=== PATIENT | male | born 1985 | race Caucasian/White ===

== ENCOUNTER 2016-10-08 09:30 | Inpatient (IN) | payer OTHER ==
--- NOTE | ~2016-10-08 | CT71 ---
[facility] A Service of [facility] RADIOLOGY TEXT RESULTS PATIENT: KARLIE WEINBERG LOCATION: [facility] 564-01 : 84 UNIT #: [id number] AGE: [address]: Kalpana Torres MD SEX: M ORDER DR: [id number] [facility] [address] [place], [place] [address] [id number] E MR#: [id number] Acc #: [id number] NAME: KARLIE WEINBERG SR : 1985 SEX: M STUDY DATE/TIME: 10/08/2016 11:02 UNIT: CIRILO ROOM: STUDY DESCRIPTION: CT Head Wo Contrast Attending Physician: Arden Patiño M.D. Ordering Physician: Arden Patiño M.D. Primary Care Physician: Primary Care Physician No MEDICAL IMAGING REPORT This report is preliminary unless electronic signature is present EXAM CT brain without contrast media HISTORY On ventilator, combative seizure, worse. TECHNIQUE Axial imaging of the brain was performed without contrast media. Bone and soft tissue windows are reviewed. The CT exam was performed with one or more of the following radiation dose reduction techniques: automatic exposure control, adjustment of mA and/or kV according to patient size, and iterative reconstruction. FINDINGS Ventricular size and configuration is normal. No intra or extraaxial mass lesions, fluid collections or mass effect are seen. No focal areas of low attenuation or evidence of hemorrhage. Patient does have a left frontal scalp hematoma. CONCLUSION [address] of the brain. 2.Left frontal scalp hematoma. Dictated by... Thompson Patel M.D. THIS IS AN ELECTRONICALLY VERIFIED REPORT Thompson Patel M.D. at 10/10/2016 7:14 AM JOSH/ari [facility] A Service [facility] RADIOLOGY TEXT RESULTS PATIENT: KARLIE WEINBERG LOCATION: [facility] 564-01 : 84 UNIT #: [id number] AGE: [address]: Kalpana Torres MD SEX: M ORDER DR: TD: 10/08/2016 13:44 JOB #: [id number] MEDICAL IMAGING REPORT Page 1 of 1 COPY
--- NOTE | ~2016-10-08 | CT2 ---
[facility] A Service of [facility] & [facility] RADIOLOGY TEXT RESULTS PATIENT: KARLIE WEINBERG SR LOCATION: [facility] [place] [facility] : 84 UNIT #: [id number] AGE: [address]: Kalpana Torres MD SEX: M ORDER DR: [id number] [facility] [address] [place], [place] [address] [id number] I MR#: [id number] Acc #: [id number] NAME: KARLIE WEINBERG SR : 1985 SEX: M STUDY DATE/TIME: 10/08/2016 14:49 UNIT: [facility] ROOM: [facility] STUDY DESCRIPTION: CT Abd and Pelv W Cont Attending Physician: James Drake M.D. Ordering Physician: Arden Patiño M.D. Primary Care Physician: No Primary Care Physician MEDICAL IMAGING REPORT This report is preliminary unless electronic signature is present EXAM CT abdomen and pelvis, 10/08/16. HISTORY Seizure today. Unable to give history, unable to cath patient on vent. Abdomen distension and fluid in lungs. TECHNIQUE CT abdomen and pelvis performed with intravenous administration of 100 mL Isovue-370. This CT exam was performed with one or more of the following radiation dose reduction techniques: automatic exposure control, adjustment of mA and/or kV according to patient size, and iterative reconstruction. COMPARISON No prior CTs of abdomen or pelvis for comparison. FINDINGS Please see today's dedicated CT of the chest for discussion of significant findings above the diaphragm. Liver, gallbladder, spleen, pancreas, adrenal glands unremarkable. 3 to 4-mm nonobstructive calculus upper pole right kidney. Bilateral kidneys and ureters otherwise unremarkable. CT PELVIS: No inguinal adenopathy. Mild urinary bladder distension. It measures 9.4 cm x 9.7 cm x 6.8 cm. No focal mural abnormality. Within the right aspect of the proximal corpus spongiosum there is a hypodense/water density structure measuring 2.4 cm in length by approximately 1.1 cm in transverse diameter. It is intimately associated with region of the proximal penile urethra. Its exact etiology is unclear. It does not contain hyperdense material to suggest products of hemorrhage. It may represent some form of chronic cyst or possibly urethral diverticulum. Clinical significance unclear. This could be further evaluated if clinically warranted with retrograde urethrogram or STS. [facility] A Service of [facility] & [facility] RADIOLOGY TEXT RESULTS PATIENT: KARLIE WEINBERG SR LOCATION: [facility] [place] [facility] 564-01 : 84 UNIT #: [id number] AGE: [address]: Kalpana Torres MD SEX: M ORDER DR: voiding cystourethrogram. Correlation with any prior studies recommended. Correlate with any prior trauma or intervention to the penile urethra. No pelvic fluid collection. No pelvic or retroperitoneal adenopathy. The distal esophagus unremarkable. Moderate gaseous distension of stomach. No focal gastric abnormality is seen. Small bowel, appendix, colon notable for presence of uncomplicated colonic diverticula. The aorta is normal in caliber. The visualized branch vessels appear patent. Bony structures show bilateral L5 pars interarticularis defects. No resulting alignment abnormality. Mild degenerative changes in the spine. No acute-appearing bony abnormality. IMPRESSION 1. Please see dedicated CT of chest for discussion of significant abnormal findings above the diaphragm. 2. Moderate gaseous distension of stomach. No obstructing process is seen. No focal gastric wall abnormalities seen. 3. Urinary bladder is mildly distended probably within physiologic limits. It measures up to a maximum diameter of 9.7 cm. There is no focal mural abnormalities seen and no perivesical inflammatory change. 4. Within the proximal right paracentral corpus spongiosa at level of the proximal penis, there is a water density structure measuring 2.4 cm in length by approximately 1.1 cm in transverse diameter. It is intimately associated with proximal penile urethra. Exact etiology is unclear. I see no evidence of acute trauma in this region. There is no hyperdense material to suggest products of hemorrhage. This may represent some form of corpus spongiosum cyst or perhaps a urethral diverticulum. Correlate with any prior instrumentation or trauma to this region. This could be further evaluated with retrograde urethrogram or voiding cystourethrogram. Comparison with prior studies would be useful. Consider urology consultation if felt clinically warranted. 5. Uncomplicated scattered colonic diverticula. 6. 3-4 mm nonobstructing calculus upper pole right kidney. 7. No abnormal fluid collections. No small bowel or colonic dilatation. 8. Chronic bilateral L5 pars interarticularis defects. No acute bony abnormality. Dictated by... Thompson Kenny M.D. THIS IS AN ELECTRONICALLY VERIFIED REPORT Thompson Kenny M.D. at 10/09/2016 5:37 PM АЛЕКСАНДР/salvatore TD: 10/08/2016 17:36 JOB #: [id number] [facility] A Service of [facility] RADIOLOGY TEXT RESULTS PATIENT: KARLIE WEINBERG SR LOCATION: [facility] [place] [facility] 564- : 84 UNIT #: [id number] AGE: [address]: Kalpana Torres MD SEX: M ORDER DR: MEDICAL IMAGING REPORT Page 1 of 1 COPY
--- NOTE | ~2016-10-08 | HP ---
Unit #: [id number] #: [id number] Patient: KARLIE WEINBERG [id number] [address] [address] [id number] I MR#: [id number] NAME: KARLIE WEINBERG SR ROOM: [facility] Age: 31 Sex: M Admission Date: 10/08/2016 : 1985 Attending Physician: Jean Marie Drake M.D. HISTORY AND PHYSICAL CHIEF COMPLAINT Seizures. HISTORY OF PRESENT ILLNESS The patient is a 31-year-old male with no past medical history brought to the ER with seizures. The patient was taking a shower and started having seizures, and the patient's 10-year-old son called EMS around 8:30 a.m. The patient was very combative in the emergency room and was having recurrent seizures, and patient was intubated for status epilepticus. No further history is available. Patient had a fall with some lacerations in the shower early this morning. PAST MEDICAL HISTORY Unknown. PAST SURGICAL HISTORY Unknown. ALLERGIES Unknown. FAMILY HISTORY Unknown. SOCIAL HISTORY Unknown. REVIEW OF SYSTEMS Unable to perform. PHYSICAL EXAMINATION GENERAL: Patient is lying in bed status post intubation. VITAL SIGNS: Temperature is afebrile, pulse 122, respiratory rate 20, blood pressure 162/102, and saturating 86% on 100% nonrebreather at the time of arrival. HEENT: Head atraumatic, normocephalic. Pupils sluggishly reactive. Status post orotracheal intubation. NECK: Supple. LUNGS: Coarse breath sounds and decreased air entry. HEART: Regular rate and rhythm, tachycardic. ABDOMEN: Soft. EXTREMITIES: No cyanosis, no clubbing. NEUROLOGIC: Status post intubation and sedation. Unit #: [id number] #: [id number] Patient: KARLIE WEINBERG DIAGNOSTIC STUDIES LABORATORY: Glucose 206. WBC 32.5, hemoglobin 16.4, hematocrit 53.5, and platelets 258,000. ABG shows pH of 7.22, PCO2 of 49, PO2 of 107, bicarb 20.6, and oxygen saturation 97.6. Sodium 143, potassium 3.6, chloride 110, BUN 10, creatinine 1.4, bicarb 11, glucose 220, AST 60, ALT 49, and albumin 4.8. Lactic acid 1.9. Procalcitonin 0.09. Repeat ABGs show pH of 7.27, PCO2 of 43, PO2 of 266, bicarb 20, and oxygen saturation 99.7. IMAGING: The first chest x-ray shows endotracheal tube has been pulled back and is in good position in the mid trachea. The remainder of the exam is unchanged. Repeat chest x-ray shows atelectasis or infiltrate in the bases. Apparent cardiomegaly which is probably due to portable technique and low lung volumes. CT of the head shows negative noncontrast CT of the brain and left frontal scalp hematoma. CARDIOLOGY: EKG shows sinus tachycardia at a rate of 135 beats per minute. ASSESSMENT 1. Status epilepticus. 2. Acute respiratory failure. PLAN Admit the patient as inpatient to ICU. Patient will have a Neurology consult and has been started on antiepileptics with Vimpat. Patient will continue with sedation. Repeat urinalysis and urine toxicology. Continue with Protonix. Patient will be initiated on sepsis protocol and started on Zosyn. Further recommendations will follow as more lab results are available. Dictated by Vaishali Piedra TD: 10/08/2016 17:58 JOB #: [id number] HISTORY AND PHYSICAL Page 1 of 1 X JEAN MARIE DRAKE MD X HISTORY AND PHYSICAL
--- NOTE | ~2016-10-08 | CT52 ---
[facility] A Service of [facility] RADIOLOGY TEXT RESULTS PATIENT: KARLIE WEINBERG SR [facility] 564-01 : 84 UNIT #: [id number] AGE: [address]: Kalpana Torres MD SEX: M ORDER DR: [id number] [facility] [address] [place], [place] [address] [id number] I MR#: [id number] Acc #: [id number] NAME: KARLIE WEINBERG : 1985 SEX: M STUDY DATE/TIME: 10/08/2016 14:29 UNIT: CEDOF ROOM: [id number] STUDY DESCRIPTION: CT Cervical Spine Wo Cont Attending Physician: James Drake M.D. Ordering Physician: Arden Patiño M.D. Primary Care Physician: No Primary Care Physician MEDICAL IMAGING REPORT This report is preliminary unless electronic signature is present EXAM CT C-Spine without contrast dated 10/08/2016 COMPARISON Unremarkable. HISTORY Seizure today with neck pain. Patient is on vent. FINDINGS CT of the C-spine was obtained without contrast in the axial plane followed by sagittal and coronal reformats. This CT exam was performed with one or more of the following radiation dose reduction techniques: automatic control, adjustment of mA and/or kV according to patient size, and iterative reconstruction. No acute fracture or subluxation is seen. Facet joints are intact without jumped or perched facet joints. C1-2 and C7-T1 junctions are within normal limits. Pre and paravertebral soft tissues are relatively unremarkable. There is an endotracheal tube in place extending close, in the distal trachea a cm or so above the tran. Bilateral consolidations are noted in the upper lobes predominantly involving the posterior aspect. C2-3: Disc osteophyte complex suspicious small central protrusion. Left uncinate spur, severe left neural foraminal narrowing is seen with mild to moderate bilateral facet hypertrophic changes and borderline size canal. C3-4: Mild disc bulge with superimposed moderate central protrusion with mild canal stenosis. Mild bilateral facet changes are noted with mild bilateral neural foraminal encroachment particularly on the left. C4-5: Mild disc bulge with central focal small to moderate protrusion. Moderate bilateral facet hypertrophic changes are noted with mild STS. [facility] A Service of [facility] & [facility] RADIOLOGY TEXT RESULTS PATIENT: KARLIE WEINBERG SR [facility]ATION: [facility] 564-01 : [birth year] UNIT #: [id number] AGE: [address]: Kalpana Torres MD SEX: M ORDER DR: bilateral neural foraminal narrowing. Mild canal stenosis is seen. C5-6: Disc osteophyte complex with bilateral uncinate spurs. Moderate right and mild to moderate left facet hypertrophic changes are noted with moderate to severe right and moderate left neural foraminal narrowing. Mild to moderate canal stenosis. C6-7, C7-T1: There is some artifact noted limiting evaluation of the canal given its location close to the upper chest. No bony severe canal stenosis or neural foraminal narrowing is seen. IMPRESSION 1. No acute displaced fracture or subluxation is seen. 2. Multilevel degenerative changes are noted in the cervical spine with varying degrees of canal stenosis and neural foraminal narrowing. 3. Bilateral lung consolidations are noted particularly in the posterior aspect extending from the superior window. It is worse on the right when compared to the left. Correlate clinically. Refer to the CT chest obtained on the same day. Dictated by... Jennifer Nicholas M.D. THIS IS AN ELECTRONICALLY VERIFIED REPORT Jennifer Nicholas M.D. at 10/08/2016 10:51 PM CPR/rnr TD: 10/08/2016 16:55 JOB #: [id number] MEDICAL IMAGING REPORT Page 1 of 1 COPY
--- NOTE | ~2016-10-08 | CR72 ---
[facility] A Service of [facility] & [facility] RADIOLOGY TEXT RESULTS PATIENT: KARLIE WEINBERG SR LOCATION: [place] [address] : [birth year] UNIT #: [id number] AGE: [address]: Kalpana Torres MD SEX: M ORDER DR: [id number] [facility] [address] [place], [place] [address] [id number] E MR#: [id number] Acc #: [id number] NAME: KARLIE WEINBERG SR : 1985 SEX: M STUDY DATE/TIME: 10/08/2016 10:06 UNIT: [facility] ROOM: STUDY DESCRIPTION: CR Chest Single View Portable Attending Physician: Arden Patiño M.D. Ordering Physician: Arden Patiño M.D. MEDICAL IMAGING REPORT This report is preliminary unless electronic signature is present EXAM Portable chest 10/08/2016 HISTORY Endotracheal tube repositioning. FINDINGS AP portable chest compared with chest earlier this morning. Endotracheal tube has been pulled back and is in good position in the mid trachea. The remainder of the exam is unchanged. Dictated by... Sergey Robbins Jr., M.D. THIS IS AN ELECTRONICALLY VERIFIED REPORT Sergey Robbins Jr., M.D. at 10/08/2016 4:56 PM KARLENE/omkar TD: 10/08/2016 12:59 JOB #: [id number] MEDICAL IMAGING REPORT Page 1 of 1 COPY
--- NOTE | ~2016-10-08 | CR72 ---
[facility] A Service of [facility] & [facility] RADIOLOGY TEXT RESULTS PATIENT: KARLIE WEINBERG SR LOCATION: [place] [address] : [birth year] UNIT #: [id number] AGE: [address]: Kalpana Torres MD SEX: M ORDER DR: [id number] [place] [address] [place], [place] [address] [id number] I MR#: [id number] Acc #: [id number] NAME: KARLIE WEINBERG SR : 1985 SEX: M STUDY DATE/TIME: 10/08/2016 18:02 UNIT: [facility] ROOM: [facility] STUDY DESCRIPTION: CR Chest Single View Portable Attending Physician: James Drake M.D. Ordering Physician: Ed Eladio Canseco M.D. Primary Care Physician: Primary Care Physician No MEDICAL IMAGING REPORT This report is preliminary unless electronic signature is present EXAM Chest portable, 10/08/2016 at 1802 hours CLINICAL HISTORY 31-year-old man for central line placement today. COMPARISON Chest CT 10/08/2016 FINDINGS Portable upright chest demonstrates endotracheal tube with tip 3.3 cm above the tran. There is a right IJ catheter with tip in the right atrium inferiorly. If it is desired to have the tip in the SVC I would suggest withdrawing the catheter 7 cm. There is no pneumothorax. There is patchy density right upper lung, right midlung and left base, likely representing pneumonia. IMPRESSION 1. Right IJ catheter tip terminates in the inferior aspect of the right atrium. If it is desired to have the tip in the SVC I would suggest withdrawing the catheter 7 cm. Endotracheal tube tip is 3.3 cm above the tran. 2. Airspace density in the right upper lobe, right lung base and left lung base likely multifocal infection. Dictated by... Lis Meyer M.D. THIS IS AN ELECTRONICALLY VERIFIED REPORT Lis Meyer M.D. at 10/09/2016 9:33 AM BOBBI/laura [facility] A Service of [facility] & [facility] RADIOLOGY TEXT RESULTS PATIENT: KARLIE WEINBERG SR LOCATION: [facility] 564-01 : [birth year] UNIT #: [id number] AGE: [address]: Kalpana Torres MD SEX: M ORDER DR: TD: 10/08/2016 21:15 JOB #: [id number] MEDICAL IMAGING REPORT Page 1 of 1 COPY
--- NOTE | ~2016-10-08 | CO ---
Unit #: [id number] #: [id number] Patient: KARLIE WEINBERG SR [id number] [address] [address] [id number] I MR#: [id number] NAME: KARLIE WEINBERG SR ROOM: [facility] Age: 31 Sex: M Admission Date: 10/08/2016 : 1985 Attending Physician: Kalpana Torres M.D. Primary Care Physician: No Primary Care Physician CONSULTATION REPORT CHIEF COMPLAINT Gross hematuria. REASON FOR CONSULTATION Gross hematuria. HISTORY OF PRESENT ILLNESS The patient is a pleasant 31-year-old male who presented to the emergency room on 10/08/2016 with a history of a seizure. The patient was brought by EMS after his 10-year-old son called. He apparently had a seizure in the shower. He was intubated for status epilepticus. Apparently he had a difficult Rosario catheter placement, but his catheter was successfully placed by the nursing staff. He did have some gross hematuria after that. The patient is now extubated. He relays an occasional history of hesitancy and no prior history of gross hematuria. CT of the abdomen and pelvis with IV contrast showed a mildly distended bladder. A small right nonobstructing stone and a hypodense lesion in the penis possibly consistent with a urethral diverticulum. PAST MEDICAL HISTORY Essentially negative except for recent seizure. PAST SURGICAL HISTORY None. SOCIAL HISTORY Positive for tobacco. Negative for alcohol or drug use. ALLERGIES Documented in the chart. CURRENT MEDICATIONS Documented in the chart. REVIEW OF SYSTEMS Twelve point review of systems was obtained and was positive for recent seizure and negative for gross hematuria, except after catheterization and negative for flank pain. PHYSICAL EXAMINATION GENERAL: The patient is sleepy, but answers questions appropriately. He is in no acute distress. HEENT: Normocephalic, atraumatic. Extraocular movements are intact. NECK: Supple. No lymphadenopathy. Unit #: [id number] #: [id number] Patient: KARLIE WEINBERG SR LUNGS: The patient is breathing comfortably with symmetric chest rise. HEART: Regular rate and rhythm. No clubbing, cyanosis or edema. : His Rosario is in place. It is draining clear urine. His penis is palpably normal with no palpable masses. Testicles are descended bilaterally without masses. DIAGNOSTIC STUDIES IMAGING: CT scan reviewed personally per the history of present illness above. LABORATORY: Creatinine 1.2, white blood cell count 19,000. PROCEDURE I irrigated his catheter. It irrigates and aspirates easily. The urine is clear. ASSESSMENT/PLAN 1. Gross hematuria after Rosario catheter placement. Urine is now clear. We may consider a cystoscopy in the future as an outpatient as he does have some history of hesitancy and has a slight abnormality on the CT scan. We will continue his Rosario catheter until he is closer to discharge. 2. Right renal calculus. This is asymptomatic. This will be observed at this time. We appreciate the opportunity to participate in the care of this very pleasant gentleman. Dictated by... Landon Sales M.D. MDP/gz TD: 10/09/2016 11:32 JOB #: [id number] CONSULTATION REPORT Page 1 of 1 X Landon Sales MD X CONSULTATION REPORT
--- NOTE | ~2016-10-08 | CR72 ---
[facility] A Service of [facility] & [facility] RADIOLOGY TEXT RESULTS PATIENT: KARLIE WEINBERG SR LOCATION: [place] [address] : [birth year] UNIT #: [id number] AGE: [address]: Kalpana Torres MD SEX: M ORDER DR: [id number] [facility] [address] [place], [place] [address] [id number] I MR#: [id number] Acc #: [id number] NAME: KARLIE WEINBERG SR : 1985 SEX: M STUDY DATE/TIME: 10/09/2016 5:48 UNIT: [facility] ROOM: [facility] STUDY DESCRIPTION: CR Chest Single View Portable Attending Physician: James Drake M.D. Ordering Physician: Fred Worthington M.D. Primary Care Physician: Primary Care Physician No MEDICAL IMAGING REPORT This report is preliminary unless electronic signature is present EXAM Portable AP view of the chest COMPARISON October 08, 2016 at 06:02 p.m. and 10:06 a.m. INDICATION 31-year-old male with respiratory failure for 2 days requiring ventilatory support and endotracheal intubation. Recent seizure. FINDINGS/IMPRESSION Right internal jugular catheter remains placed deep in the right atrium. Clinical correlation is recommended. If positioning at the cavoatrial junction is desired, consider retraction by 7 cm. Endotracheal tube is adequately positioned with the tip terminating approximately 4.7 cm above the tran. There are very low lung volumes. There is no convincing evidence of pneumothorax or pleural effusion. There is improved atelectasis versus pneumonia in the right upper lobe without current consolidations seen within the lungs. There may be minimal increased opacity in the left lung base, favoring atelectasis. Cardiomediastinal silhouette is within normal limits. Dictated by... Aamir Marroquin M.D. THIS IS AN ELECTRONICALLY VERIFIED REPORT Aamir Marroquin M.D. at 10/15/2016 7:18 AM CHUN/karina TD: 10/09/2016 07:22 JOB #: [id number] [facility] A Service of [facility] & [facility] RADIOLOGY TEXT RESULTS PATIENT: KARLIE WEINBERG SR LOCATION: [facility] 564-01 [place] [address] #: [id number] : [birth year] UNIT #: [id number] AGE: [address]: Kalpana Torres MD SEX: M ORDER DR: MEDICAL IMAGING REPORT Page 1 of 1 COPY
--- NOTE | ~2016-10-08 | CT55 ---
[facility] A Service of [facility] & [facility] RADIOLOGY TEXT RESULTS PATIENT: KARLIE WEINBERG SR LOCATION: [facility] 564-01 : 84 UNIT #: [id number] AGE: [address]: Kalpana Torres MD SEX: M ORDER DR: [id number] [facility] [address]. [place], [place] [address] [id number] I MR#: [id number] Acc #: [id number] NAME: KARLIE WEINBERG SR : 1985 SEX: M STUDY DATE/TIME: 10/08/2016 14:49 UNIT: [facility] ROOM: [facility] STUDY DESCRIPTION: CT Chest W Con Attending Physician: James Drake M.D. Ordering Physician: Arden Patiño M.D. Primary Care Physician: No Primary Care Physician MEDICAL IMAGING REPORT This report is preliminary unless electronic signature is present EXAM CT of the chest HISTORY Seizure today. Unable give history. On vent. Unable to cath patient. Abdomen distension and fluid in the lungs. TECHNIQUE CT chest performed with intravenous administration of 100 mL Isovue-370. This CT exam was performed with one or more of the following radiation dose reduction techniques: Automatic exposure control, adjustment of mA and/or kV according to patient size, and iterative reconstruction. COMPARISON No prior CT chest for comparison. FINDINGS Endotracheal tube terminates approximately 2 cm above the tran. Thyroid unremarkable. No axillary, mediastinal, or hilar adenopathy. Heart kauxie-vs-nfwft limits of normal in size. Trace right effusion. Not a drainable fluid collection. Visualized portions of liver unremarkable. Visualized gallbladder, spleen, pancreas, adrenal glands, kidneys notable for punctate 2-3 mm nonobstructing calculus upper pole right kidney. Distal esophagus unremarkable. Moderate gaseous distension of the stomach. No focal mural abnormality seen. Visualized small bowel and colon unremarkable. LUNGS: Paramediastinal airspace disease in the right upper lobe extending to the apex. The more peripheral right upper lobe is clear. The right middle lobe appears clear. Consolidative airspace disease in the right lower lobe more pronounced posteriorly and posteromedially. No airway obstructing process is seen. There are multiple air bronchograms. No suspicious nodule. The left lung shows complete opacification of the left STS. [facility] A Service of [facility] RADIOLOGY TEXT RESULTS PATIENT: KARLIE WEINBERG SR LOCATION: [facility] 564-01 : [birth year] UNIT #: [id number] AGE: [address]: Kalpana Torres MD SEX: M ORDER DR: lower lobe. Air bronchograms is present. Volume loss in the left lower lobe. Some patchy dependent densities at the extreme left lung base in the inferior lingular segment. Some linear scarring or atelectasis in the dependent left lung apex. No pneumothorax. This examination was not tailored for assessment of the pulmonary arteries. The central pulmonary arteries are unremarkable. The aorta is normal in caliber. Bony structures show no acute abnormality. IMPRESSION 1. Extensive bilateral airspaced disease with extensive consolidation. Consolidative airspace disease along the superomedial right upper lobe and posterior right upper lobe. Extensive airspace consolidation in the dependent right lower lobe. There is sparing of the right middle lobe. Near complete opacification of the left lower lobe with volume loss in the left lower lobe. Findings are felt to reflect bilateral pneumonia with involvement of right upper and lower lobes and left lower lobe predominately. Some components of atelectasis in the bilateral lower lobes may be present as well. No central obstructing process is seen. There are multiple air bronchograms. Follow up to radiographic resolution is recommended. 2. There are some milder patchy and linear densities dependent left upper lobe and in the right lower lobe favored to reflect components of milder pneumonia and atelectasis. 3. Trace right effusion. No drainable pleural fluid collection. No pneumothorax. 4. small 2-3 mm nonobstructing right upper pole renal calculus. 5. Moderate gaseous distension of the stomach. No focal mural abnormality is seen. Visualized small bowel and colon unremarkable. 6. No acute bony abnormality. No acute appearing vascular abnormality. Dictated by... Thompson Kenny M.D. THIS IS AN ELECTRONICALLY VERIFIED REPORT Thompson Kenny M.D. at 10/09/2016 5:37 PM АЛЕКСАНДР/mira TD: 10/08/2016 17:07 JOB #: [id number] MEDICAL IMAGING REPORT Page 1 of 1 COPY
--- NOTE | ~2016-10-08 | CR72 ---
[facility] A Service of [facility] & [facility] RADIOLOGY TEXT RESULTS PATIENT: KARLIE WEINBERG SR LOCATION: [place] [address] : [birth year] UNIT #: [id number] AGE: [address]: Kalpana Torres MD SEX: M ORDER DR: [id number] [facility] [address] [place], [place] [address] [id number] E MR#: [id number] Acc #: [id number] NAME: KARLIE WEINBERG SR : 1985 SEX: M STUDY DATE/TIME: 10/08/2016 10:03 UNIT: [facility] ROOM: STUDY DESCRIPTION: CR Chest Single View Portable Attending Physician: Arden Patiño M.D. Ordering Physician: Arden Patiño M.D. MEDICAL IMAGING REPORT This report is preliminary unless electronic signature is present EXAM Portable chest, 10/08. INDICATION Seizure. Endotracheal tube placement today. FINDINGS AP portable chest was obtained. No comparison. Tip of the endotracheal tube is in the right mainstem bronchus. I would recommend retracting the tube about 3 cm. Lung volumes are low. There is atelectasis or infiltrate in the bases. No pneumothorax. Heart appears enlarged but this may be due to portable technique and low lung volumes. There is gaseous distension of the stomach. IMPRESSION Right mainstem intubation. Atelectasis or infiltrate in the bases. Apparent cardiomegaly which is probably due to portable technique and low lung volumes. Dictated by... Sergey Robbins Jr., M.D. THIS IS AN ELECTRONICALLY VERIFIED REPORT Sergey Robbins Jr., M.D. at 10/08/2016 4:56 PM KARLENE/kristi TD: 10/08/2016 12:34 JOB #: [id number] MEDICAL IMAGING REPORT Page 1 of 1 COPY
--- NOTE | ~2016-10-08 | EKG ---
PATIENT: KLAUDIA CAGLE UNIT #: [id number] Ventricular Rate: 135 BPM Atrial Rate: 135 BPM P-R Interval: 148 ms QRS Duration: 82 ms Q-T Interval: 282 ms QTC Calculation(Bezet): 423 ms P [place]: 58 degrees Calculated R [place]: 41 degrees Calculated T [place]: 25 degrees Diagnosis Line: Diagnosis Line: Normal sinus rhythm Diagnosis Line: Normal ECG Diagnosis Line: Diagnosis Line: Confirmed by ETHAN ODOM MD ([id number]) on 10/09/2016 Diagnosis Line: 7:28:09 AM INTERPRETING MD: LEI ZHANG
--- NOTE | ~2016-10-08 | DS ---
Unit #: [id number] #: [id number] Patient: KARLIE WEINBERG SR [id number] [address] [address] [id number] I MR#: [id number] NAME: KARLIE WEINBERG SR ROOM: 564 Age: 31 Sex: M Admission Date: 10/08/2016 : 1985 Discharge Date: 10/10/2016 Attending Physician: Kalpana Torres M.D. Primary Care Physician: No Primary Care Physician DISCHARGE SUMMARY PRINCIPAL DIAGNOSES 1. Status epilepticus. 2. High clinical suspicion for DTs. 3. Acute hypoxic respiratory failure, now resolved. 4. Bilateral multifocal aspiration pneumonia. 5. Sepsis secondary to multifocal aspiration pneumonia. 6. Acute kidney injury, prerenal in combination with rhabdomyolysis, now resolved. 7. Acute rhabdomyolysis, seizure induced, now resolved. 8. High anion gap metabolic acidosis secondary to seizure, resolved. 9. Non-anion gap metabolic acidosis, resolved. 10. Hematuria. 11. Vitamin B12 deficiency. 12. Folate deficiency. 13. Left frontal scalp hematoma. 14. Marijuana use. CONSULTANTS Dr. rDake, pulmonology. Dr. Blanco, neurology. Dr. Mata, urology. DIAGNOSTIC DATA IMAGING: Chest x-ray on 10/08/2016 with evidence of right mainstem intubation. This resolved on follow-up x-ray. CT of the head without contrast on 10/08/2016 which was normal. Left frontal scalp hematoma noted. CT of the cervical spine without contrast on 10/08/2016 without evidence of fracture or subluxation. Bilateral lung consolidations are noted. CT of the chest with contrast on 10/08/2016 with extensive bilateral airspace disease with extensive consolidation present in the right upper lobe, posterior right upper lobe, consolidation of the right lower lobe and present in the left lower lobe. Trace right effusion noted. Small 2-3 mm nonobstructing right upper pole renal calculus noted. Distension of the stomach noted. CT of the abdomen and pelvis with contrast on 10/08/2016 with gaseous distension of the stomach. The right paracentral corpus spongiosa at level of the proximal penis, there is a water density structure measuring. There is no evidence of trauma in the region. Bilateral L5 pars interarticular defects noted. Unit #: [id number] #: [id number] Patient: KARLIE WEINBERG SR Follow-up chest x-ray on the revealing improving pneumonia. CLINICAL HISTORY/HOSPITAL COURSE Mr. Weinberg is a 31-year-old male brought to the emergency department by EMS after witnessed seizure by the patient's son. Please refer to history and physical for further details. The patient was intubated for airway protectin and subsequently admitted to the ICU. The patient was started on empiric Keppra and Vimpat per Dr. Blanco. Fortunately, seizure activity resolved. From a seizure standpoint, CT scan of the head was unremarkable. The patient does explain to me that he has vertigo and he states his vertigo was acting up and fell and hit his head and thinks may be he had seizure afterward. However, the patient also drinks "a lot." He would not quantify. He states that his last drink was two to three days prior to the seizure. It is unclear to me whether perhaps this is an alcohol withdrawal seizure versus perhaps a traumatic seizure, which seems less likely in my personal opinion. The patient's Vimpat has been removed. He will be maintained on Keppra. We have discussed driving limitations per [place] state law. Dr. Drake was consulted, given ventilatory support. The patient self extubated on the morning of the . Fortunately he has not had any further respiratory distress. He does have a significant bilateral pneumonia that is felt to be aspiration origin. He was placed on gram negative coverage during hospitalization and he remained afebrile. White blood cell count has been decreasing. He will complete a short course of antibiotic therapy as an outpatient. The patient today is otherwise clinically stable. He was found to be mildly vitamin B12 deficiency, which we will replace on an outpatient basis. He has been counseled regarding alcohol use and will be discharged home. The patient did have significant hematuria, both grossly and on urinalysis. This was out of proportion to rhabdomyolysis. For this reason urology was consulted. At this point they are going to follow up with the patient on an outpatient basis. DISCHARGE CONDITION Stable. DISPOSITION Discharge to home. DISCHARGE MEDICATIONS 1. Albuterol inhaler 1 puff q.4 h. p.r.n. shortness of breath. 2. Clindamycin 600 mg p.o. t.i.d. for another 5 days. 3. Keppra 500 mg p.o. b.i.d. with 1 refill given. 4. Tessalon Perles 200 mg p.o. t.i.d. p.r.n. cough. 5. Singulair 10 mg daily with 1 refill given. 6. Vitamin B12 1000 mg p.o. daily. DISCHARGE INSTRUCTIONS 1. The patient was instructed to refrain from any further alcohol use and marijuana use. 2. He has been instructed no driving for three months per [place] [employer] law. Unit #: [id number] #: [id number] Patient: KARLIE WEINBERG SR DIET Regular. ACTIVITY Increase as tolerated. FOLLOWUP 1. The patient will follow up with Dr. Landon Sales of urology in one month. 2. The patient will follow up with his primary care provider in one month. 3. He should follow up with Dr. Rick Agarwal of outpatient neurology in the next six to eight weeks. Time spent on discharge 33 minutes. Dictated by... Kalpana Torres M.D. SUNNY/vee TD: 10/11/2016 10:54 JOB #: [id number] DISCHARGE SUMMARY Page 1 of 1 X Kalpana Torres MD X DISCHARGE SUMMARY
--- NOTE | ~2016-10-08 | CO ---
Unit #: [id number] #: [id number] Patient: KARLIE WEINBERG SR [id number] [address] [address] [id number] I MR#: [id number] NAME: KARLIE WEINBERG SR ROOM: [facility] Age: 31 Sex: M Admission Date: 10/08/2016 : 1985 Attending Physician: James Drake M.D. Primary Care Physician: No Primary Care Physician CONSULTATION REPORT REASON FOR CONSULTATION Critical care management. CHIEF COMPLAINT Seizure disorder. HISTORY OF PRESENT ILLNESS Patient brought into the emergency room with a complaint of spontaneous seizurelike activity at home, witnessed, and had witnessed here in the emergency room, became very combative and was intubated by the ER physician and currently intubated, sedated, has no past medical history of seizure. Review of systems is unobtainable. I am seeing the patient at the bedside. PHYSICAL EXAMINATION VITAL SIGNS: His temperature is currently 96, pulse is 110, respiration 16, blood pressure 134/93, oxygen saturation 97%. NEUROLOGICAL: Sedated, intubated. REVIEW OF SYSTEMS Unobtainable. PAST MEDICAL HISTORY No history of seizure. SOCIAL HISTORY Positive for smoking, no alcohol, no drug abuse. FAMILY HISTORY None as per record. MEDICATION Tessalon perles. DIAGNOSTIC STUDIES LABORATORY: A pH of 7.27, pCO2 is 43, pO2 is 266. His BUN is 10, creatinine is 1.4, glucose is 220, his bicarb is 11, lactic acid 1.9, white count 32, hemoglobin 16, hematocrit 53, platelet count is 258. IMAGING: A CT of the head was done, showed no acute abnormality, left frontal scalp hematoma. Chest x-ray showed endotracheal tube in mid trachea and cardiomegaly. Unit #: [id number] #: [id number] Patient: KARLIE WEINBERG ASSESSMENT 1. Acute respiratory failure. 2. Altered mental status. 3. Seizure disorder. 4. Likely aspiration. 5. Leukocytosis. 6. Acute kidney injury. 7. Hyperglycemia. 8. Severe metabolic acidosis. PLAN Plan is to aggressively hydrate the patient, broad-spectrum IV antibiotics and GI and DVT prophylaxis. Patient will need lumbar puncture and MRI. Will consult Neurology. Continue ventilator support, ICU protocol. Please see orders for detailed plan. Thank you very much for this consultation. We will continue to monitor. Dictated by... Vaishali Aburto/simba TD: 10/08/2016 22:05 JOB #: [id number] CONSULTATION REPORT Page 1 of 1 X Fred Worthington MD X CONSULTATION REPORT
--- NOTE | ~2016-10-08 | CO ---
Unit #: [id number] #: [id number] Patient: KARLIE WEINBERG SR [id number] [facility] [address] [facility] [place] [facility]. [place], [place] [address] [id number] I MR#: [id number] NAME: KARLIE WEINBERG SR ROOM: 564 Age: 31 Sex: M Admission Date: 10/08/2016 : 1985 Attending Physician: Kalpana Torres M.D. CONSULTATION REPORT REFERRING PHYSICIAN Dr. James Drake. REASON FOR CONSULTATION Multiple seizure. The patient is intubated. PATIENT IDENTIFICATION This is a 31-year-old white male, who is evaluated in room ER T1 at [facility]. SOURCE OF INFORMATION Evaluation by the ER physician and my personal discussions with Dr. Arden Patiño, ER physician. Further workup in progress. PROBLEM LIST Otherwise not known to us. HISTORY OF PRESENT ILLNESS This is a 31-year-old gentleman, who was actually brought in around 9:49 a.m. after apparently his son heard a noise and found him in the bathroom, where he was apparently was showering and he was naked and he was on the floor, had a seizure. I am still looking for the ER and the EMS records, but apparently he talked to the emergency room people initially and then he had another seizure, so then he was medicated and brought him here. He had a third seizure ended up being intubated. I got a consult and saw him within about 10 minutes and when I came, he was very combative. He is moving all extremities. He is intubated and so he was given a bolus of sedative medication to calm him down. He has not had any seizures since the one this morning. So far, we do not have any particular reports of epilepsy. We have not been able to get his urine to see if there are any drug issues. Apparently, he is not taking any medication. There is no allergies, but we still do not have enough information. His random glucose was 222. His ABG showed a pH of 7.22. His AST was 60, ALT was 49. His white count was 32.5, H and H of 16.4 and 53.5, platelet count was 258. He was given several doses of Versed and Ativan and some of them were to just calm him down and he was loaded with 2 g of IV Keppra. He has not had any seizures since. No history of seizures that we know. I just spoke to the ex- and several family members. The ex- is involved talking to him frequently, because they have a 10-year-old son together and the son was with him. Unit #: [id number] #: [id number] Patient: KARLIE WEINBERG SR He apparently has asthma. He was not feeling well and felt dizzy and headaches since he went home yesterday early from work. He has had some asthma attacks. Nothing known that he has history of epilepsy. No recent travel. No infection, head injury, trauma, drugs that we are aware off. His father had some sort of seizures and bipolar disorder and psychiatric condition. PAST MEDICAL HISTORY Asthma. PAST SURGICAL HISTORY Nothing known. ALLERGIES None. HOME MEDICATIONS Apparently, he was using some sort of rescue inhaler. FAMILY HISTORY As discussed. SOCIAL HISTORY He is . He has a 10-year-old child. He does work. He is a smoker. No history of drug or alcohol use. REVIEW OF SYSTEMS Could not be obtained, because of his present sedated and intubated condition. PHYSICAL EXAMINATION VITAL SIGNS: His pulse is 133; respirations 19; blood pressure 144/85, when he came in, it was 162/102; O2 sats are 86% to 96%; BMI is 27; weight of 195 pounds; temperature 97.9 rectal. NEUROLOGICAL: The patient is intubated and sedated. He is obviously not following commands. I saw him moving all extremities. Cranial nerve examination; sluggish, pupils about 2 mm. Eyes are conjugate. Cornea is present. I did not see any ptosis. I did not see any nystagmus. I do not see any facial asymmetry. Hearing is questionable. Tongue was midline. I could not visualize oropharynx or uvula. Motor exam showed right now he is sedated and intubated. I saw him moving all extremities. No response to painful stimuli, because of his sedation and intubation. Unit #: [id number] #: [id number] Patient: KARLIE WEINBERG SR I could not get any reflexes. Toes are mute. Gait and coordination could not be evaluated. DIAGNOSTIC STUDIES LABORATORY RESULTS: Reviewed. IMAGING STUDIES: Reviewed. IMPRESSION 1. Multiple seizure. 2. Cause unknown. 3. I discussed with the family, friends, and ex- in detail. The focus is. a. To stop for any further seizures and we have not seen any since the one he had earlier. b. Other is airway breathing and circulation. c. I will give him antibiotics. d. Consider LP soon. e. Consider EEG. f. Continue antiepileptics, Keppra, and I may add Vimpat, because he had multiple seizure. Await urine drug screen and he was given Zosyn. I may give him Rocephin and we will see how things go including MRI and EEG may be considered soon. Call me for any other questions, issues, or concerns. Dictated by... Vaishali Rojas/patti TD: 10/09/2016 13:00 JOB #: [id number] CONSULTATION REPORT Page 1 of 1 X Nandini Blanco MD X CONSULTATION REPORT
[~2016-10-08 09:30] MED LIST: FLEXERIL PO; KEFLEX500 MG PO; NAPROXEN PO; VICODIN 5/500 T1 TAB PO
[2016-10-08 10:28] LABS: BASOPHIL# 0.1 X10e3 (0-0.3); BASOPHIL% 0.4 % (0-2.5); DIFF IND YES; EOSINOPHIL# 0.3 X10e3 (0-0.7); EOSINOPHIL% 0.9 % (0.0-7.0); HEMATOCRIT 53.5 % (38.0-50.0); HEMOGLOBIN 16.4 gm/dL (13.0-16.0); LYMPHOCYTE# 3.7 X10e3 (1.0-3.5); LYMPHOCYTE% 11.3 % (17.0-45.0); MEAN CORPUSCULAR HEMOGLOBIN 30.7 PG (28-34); MEAN CORPUSCULAR HGB CONC 30.7 g/dL (30-36); MEAN PLATELET VOLUME 10.3 FL (6.5-11.5); MONOCYTE# 1.7 X10e3 (0-1.0); MONOCYTE% 5.1 % (3.0-12.0); NEUTROPHIL# 26.8 X10e3 (1.5-7.1); NEUTROPHIL% 82.3 % (40-75); PLATELET COUNT 258 X10e3 (140-420); RED BLOOD COUNT 5.35 X10e (3.90-5.60); RED CELL DISTRIBUTION WIDTH 14.6 % (11.0-15.5); WHITE BLOOD COUNT 32.5 X10e3 (4.0-10.5)
[2016-10-08 10:58] LABS: PLATELET ESTIMATE NORMAL (NORMAL)
[2016-10-08 11:08] LABS: ARTERIAL BLOOD GAS PCO2 49.3 mmHg (35.0-45.0); ARTERIAL BLOOD GAS pH 7.229 (7.350-7.450)
[2016-10-08 11:09] LABS: ARTERIAL BLD GAS O2 SATURATION 97.1 % (90.0-100.0); ARTERIAL BLOOD GAS CARBOXY HB 1.3 %sat (0.0-9.0); ARTERIAL BLOOD GAS HCO3 20.6 mmol/L; ARTERIAL BLOOD GAS MET HB 0.9 %sat (0.0-2.0)
[2016-10-08 11:10] LABS: ARTERIAL BLOOD GAS ART SITE LEFT RADIAL; ARTERIAL BLOOD GAS DELIVERY VENT; ARTERIAL BLOOD GAS VENT MODE AC; ARTERIAL DRAW? YES
[2016-10-08 11:19] LABS: ALBUMIN SERUM 4.8 g/dL (3.5-5.0); ALKALINE PHOSPHATASE 49 U/L (32-92); ALT (SGPT) 49 U/L (10-40); AST (SGOT) 60 U/L (10-42); BILIRUBIN, DIRECT 0.1 mg/dL (0.0-0.2); BILIRUBIN,INDIRECT 0.6 mg/dL (0.0-0.9); BILIRUBIN,TOTAL 0.7 mg/dL (0.2-2.0); BLOOD UREA NITROGEN 10 mg/dL (9-23); BUN/CREATININE RATIO 7.14; CARBON DIOXIDE 11 mmol/L (22-31); CHLORIDE 110 mmol/L (100-111); CREATININE SERUM 1.4 mg/dL (0.6-1.4); GLUCOSE FASTING 220 mg/dL (70-110); POTASSIUM 3.6 mmol/L (3.5-5.1); PROTEIN TOTAL SERUM 7.5 g/dL (6.0-8.3); SODIUM 143 mmol/L (135-145)
[2016-10-08 11:27] LABS: ALCOHOL BLOOD <5 mg/dL ([, 0])
[2016-10-08] MEDS ORDERED: BENZONATATE200 M1 PO (13:25)
[2016-10-08 15:26] LABS: ARTERIAL BLD GAS O2 SATURATION 99.7 % (90.0-100.0); ARTERIAL BLOOD GAS ALLEN TEST NORMAL; ARTERIAL BLOOD GAS ART SITE LEFT RADIAL; ARTERIAL BLOOD GAS CARBOXY HB 0.1 %sat (0.0-9.0); ARTERIAL BLOOD GAS DELIVERY VENT; ARTERIAL BLOOD GAS HCO3 20.4 mmol/L; ARTERIAL BLOOD GAS MET HB 0.8 %sat (0.0-2.0); ARTERIAL BLOOD GAS PCO2 43.9 mmHg (35.0-45.0); ARTERIAL BLOOD GAS VENT MODE AC; ARTERIAL BLOOD GAS pH 7.275 (7.350-7.450); ARTERIAL DRAW? YES
[2016-10-08 15:29] LABS: FOLATE (FOLIC ACID) 4.8 ng/mL (>5.8)
[2016-10-08 15:38] LABS: URINE SOURCE CLEAN CATCH
[2016-10-08 15:46] LABS: URINE APPEARANCE TURBID; URINE BILIRUBIN NEG (NEG); URINE BLOOD 3+ (NEG); URINE COLOR YELLOW; URINE GLUCOSE NEG (NEG); URINE KETONE NEG (NEG); URINE LEUKOCYTE ESTERASE NEG (NEG); URINE NITRATE NEG (NEG); URINE PROTEIN NEG (NEG); URINE SPECIFIC GRAVITY 1.023 (1.003-1.035); URINE UROBILINOGEN 0.2 MG/DL (NEG)
[2016-10-08 15:49] LABS: URBCS1 AUWI 25-50 /[HPF] (0-2); URINE BACTERIA AUWI NEG (NEGATIVE); URINE SQUAMOUS EPITHELIAL CELL NONE SEEN /[HPF]
[2016-10-08 15:50] LABS: CULTURE INDICATED? NO
[2016-10-08 16:53] LABS: URINE APPEARANCE TURBID; URINE BILIRUBIN NEG (NEG); URINE BLOOD 3+ (NEG); URINE COLOR YELLOW; URINE GLUCOSE NEG (NEG); URINE KETONE NEG (NEG); URINE LEUKOCYTE ESTERASE NEG (NEG); URINE NITRATE NEG (NEG); URINE PROTEIN NEG (NEG); URINE SPECIFIC GRAVITY 1.023 (1.003-1.035); URINE UROBILINOGEN 0.2 MG/DL (NEG)
[2016-10-08 16:56] LABS: URBCS1 AUWI 25-50 /[HPF] (0-2); URINE BACTERIA AUWI NEG (NEGATIVE); URINE SQUAMOUS EPITHELIAL CELL NONE SEEN /[HPF]
[2016-10-08] MEDS ORDERED: SINGULAIR PO (18:31)
[2016-10-08] MEDS ORDERED: ALBUTEROL20 ml INH (18:33)
[2016-10-08 19:27] LABS: AMPHETAMINE NEG (NEG); BARBITURATES NEG (NEG); BENZODIAZEPINES POS (NEG); COCAINE NEG (NEG); MARIJUANA POS (NEG); OPIATES POS (NEG); TRICYCLIC ANTIDEPRESSANTS NEG (NEG); U METHADONE NEG (NEG)
[2016-10-09 04:26] LABS: ARTERIAL BLD GAS O2 SATURATION 99.9 % (90.0-100.0); ARTERIAL BLOOD GAS ALLEN TEST NORMAL; ARTERIAL BLOOD GAS ART SITE LEFT RADIAL; ARTERIAL BLOOD GAS CARBOXY HB 0.3 %sat (0.0-9.0); ARTERIAL BLOOD GAS DELIVERY VENT; ARTERIAL BLOOD GAS MET HB 1.2 %sat (0.0-2.0); ARTERIAL BLOOD GAS PCO2 38.7 mmHg (35.0-45.0); ARTERIAL BLOOD GAS VENT MODE AC; ARTERIAL BLOOD GAS pH 7.343 (7.350-7.450); ARTERIAL DRAW? YES
[2016-10-09 05:35] LABS: BASOPHIL% 0.1 % (0-2.5); DIFF IND NO; EOSINOPHIL# 0.1 X10e3 (0-0.7); EOSINOPHIL% 0.3 % (0.0-7.0); HEMATOCRIT 43.7 % (38.0-50.0); HEMOGLOBIN 14.1 gm/dL (13.0-16.0); LYMPHOCYTE# 1.1 X10e3 (1.0-3.5); LYMPHOCYTE% 5.7 % (17.0-45.0); MEAN CELL VOLUME 95.4 FL (83-96); MEAN CORPUSCULAR HEMOGLOBIN 30.8 PG (28-34); MEAN CORPUSCULAR HGB CONC 32.3 g/dL (30-36); MEAN PLATELET VOLUME 9.8 FL (6.5-11.5); MONOCYTE# 1.4 X10e3 (0-1.0); MONOCYTE% 7.1 % (3.0-12.0); NEUTROPHIL# 16.8 X10e3 (1.5-7.1); NEUTROPHIL% 86.8 % (40-75); PLATELET COUNT 200 X10e3 (140-420); RED BLOOD COUNT 4.58 X10e (3.90-5.60); WHITE BLOOD COUNT 19.3 X10e3 (4.0-10.5)
[2016-10-09 05:53] LABS: ALBUMIN SERUM 3.6 g/dL (3.5-5.0); BILIRUBIN,TOTAL 0.9 mg/dL (0.2-2.0); BUN/CREATININE RATIO 9.16; CALCIUM SERUM 7.9 mg/dL (8.4-10.2); CREATININE SERUM 1.2 mg/dL (0.6-1.4); GLOM FILT RATE Estimated 79.6 mL/min (>60); POTASSIUM 4.2 mmol/L (3.5-5.1); PROTEIN TOTAL SERUM 5.9 g/dL (6.0-8.3)
[2016-10-10 06:31] LABS: BASOPHIL# 0.1 X10e3 (0-0.3); BASOPHIL% 0.5 % (0-2.5); EOSINOPHIL# 0.1 X10e3 (0-0.7); EOSINOPHIL% 0.9 % (0.0-7.0); LYMPHOCYTE# 1.6 X10e3 (1.0-3.5); LYMPHOCYTE% 11.3 % (17.0-45.0); MEAN CELL VOLUME 94.5 FL (83-96); MEAN CORPUSCULAR HEMOGLOBIN 30.6 PG (28-34); MEAN CORPUSCULAR HGB CONC 32.4 g/dL (30-36); MEAN PLATELET VOLUME 9.8 FL (6.5-11.5); MONOCYTE# 1.2 X10e3 (0-1.0); MONOCYTE% 8.8 % (3.0-12.0); NEUTROPHIL# 10.9 X10e3 (1.5-7.1); NEUTROPHIL% 78.5 % (40-75); PLATELET COUNT 175 X10e3 (140-420); RED BLOOD COUNT 4.23 X10e (3.90-5.60); RED CELL DISTRIBUTION WIDTH 13.7 % (11.0-15.5); WHITE BLOOD COUNT 13.9 X10e3 (4.0-10.5)
[2016-10-10 06:40] LABS: PARTIAL THROMBOPLASTIN TIME 25.9 SECONDS (23.5-31.3); PROTHROMBIN TIME (PATIENT) 10.9 SECONDS (10.0-11.7)
[2016-10-10 06:51] LABS: DIFF IND NO
[2016-10-10 07:47] LABS: BUN/CREATININE RATIO 6.66; CALCIUM SERUM 8.4 mg/dL (8.4-10.2); CREATININE SERUM 0.9 mg/dL (0.6-1.4); GLOM FILT RATE Estimated 112.6 mL/min (>60); POTASSIUM 3.7 mmol/L (3.5-5.1)
[2016-10-10] MEDS ORDERED: CLEOCIN PO (16:51)
[2016-10-10] MEDS ORDERED: KEPPRA500 M1 PO (16:51)
[2016-10-10] MEDS ORDERED: BENZONATATE200 M1 PO (16:52)
[2016-10-10] MEDS ORDERED: B-121000 MC1 PO (16:56)
== END 2016-10-10 17:28 | disposition home or self-care (01) | DRG 100 ==
LOC: CED 09:30 → C5C 13:20 → CEDOF 13:20 → CICCU2 13:20 → CED 13:32 → CEDOF 13:32 → CICCU2 13:32 → CEDOF 17:02 → CICCU2 17:02 → C5C 10-09 20:05
PROVIDERS: Emergency Medicine; Internal Medicine; Psychiatry & Neurology Neurology
PROC: 5A1935Z Respiratory Ventilation, Less than 24 Consecutive Hours (ICD-10-PCS; principal; 2016-10-08)
PROC: 0BH17EZ Insertion of Endotracheal Airway into Trachea, Via Natural or Artificial Opening (ICD-10-PCS; 2016-10-08)
PROC: 05HM33Z Insertion of Infusion Device into Right Internal Jugular Vein, Percutaneous Approach (ICD-10-PCS; 2016-10-08)
PROC: B543ZZA Ultrasonography of Right Jugular Veins, Guidance (ICD-10-PCS; 2016-10-08)
DX: G40.901 Epilepsy, unspecified, not intractable, with status epilepticus (principal); J96.01 Acute respiratory failure with hypoxia; J69.0 Pneumonitis due to inhalation of food and vomit; A41.9 Sepsis, unspecified organism; N17.9 Acute kidney failure, unspecified; M62.82 Rhabdomyolysis; T83.83XA Hemorrhage due to genitourinary prosthetic devices, implants and grafts, initial encounter; E87.2 Acidosis; F10.231 Alcohol dependence with withdrawal delirium; E53.8 Deficiency of other specified B group vitamins; S00.03XA Contusion of scalp, initial encounter; W18.2XXA Fall in (into) shower or empty bathtub, initial encounter; Y92.002 Bathroom of unspecified non-institutional (private) residence as the place of occurrence of the external cause; F12.90 Cannabis use, unspecified, uncomplicated; R41.82 Altered mental status, unspecified; F17.210 Nicotine dependence, cigarettes, uncomplicated; Y73.1 Therapeutic (nonsurgical) and rehabilitative gastroenterology and urology devices associated with adverse incidents; Y92.239 Unspecified place in hospital as the place of occurrence of the external cause; N20.0 Calculus of kidney; N36.1 Urethral diverticulum
CPT/HCPCS: 36600; 70450; 71010; 71260; 72125; 74177; 80048; 80053; 80076; 80307; 81003; 82308; 82550; 82607; 82746; 82803; 82947; 83605; 85025; 85610; 85730; 87086; 90732; 93005; 94002; 94003; 94640; 94760; 94761; 96365; 96375; 97110; 97116; 97161; 97166; 97530; 97535; 99291; C9113; C9254; G0009; G0480; J0696; J1170; J1953; J2060; J2250; J2543; J3370; J3411; J3420; Q9967

== ENCOUNTER 2016-10-13 10:34 | Emergency (ER) | payer OTHER ==
--- NOTE | ~2016-10-13 | CT71 ---
[facility] A Service of [facility] & [facility] RADIOLOGY TEXT RESULTS PATIENT: KARLIE WEINBERG SR LOCATION: SED : [birth year] UNIT #: [id number] AGE: [address]: Matias Mcdowell MD SEX: M ORDER DR: [id number] [address] [address] [id number] E MR#: [id number] #: [id number] NAME: KARLIE WEINBERG SR : 1985 SEX: M STUDY DATE/TIME: 10/13/2016 11:39 UNIT: SED ROOM: STUDY DESCRIPTION: CT Head Wo Contrast Attending Physician: Matias Mcdowell M.D. Ordering Physician: Matias Mcdowell M.D. Primary Care Physician: Primary Care Physician No MEDICAL IMAGING REPORT This report is preliminary unless electronic signature is present. EXAM CT head without IV contrast COMPARISON 10/08/2016 INDICATIONS 31-year-old male with dizziness for [address] imaging of the head was performed. The CT exam was performed with one or more of the following radiation dose reduction techniques: automatic exposure control, adjustment of mA and/or kV according to patient size, and iterative reconstruction. Mastoid air cells, middle ears and visualized paranasal sinuses are well-aerated. No acute fractures or suspicious osseous lesion. There is a small left temporal parietal subdural hematoma with minimal mass effect on the adjacent temporal lobe. This measures up to 4 mm in width and approximately 3.2 cm AP direction. This is most likely subacute. This was not seen on CT 5 days ago. No acute intracranial blood. No evidence of acute ischemia. IMPRESSION New small subdural hematoma seen primarily over the left temporal lobe extending minimally to the extraaxial space over the parietal lobe. This measures approximate 5 mm in width and approximately 3.2 cm AP and appears new from CT of 5 days ago. This subdural hematoma appears to be subacute. There is no evidence of acute blood. Consider short interval imaging followup to ensure resolution. No other significant findings. A courtesy call was placed to ER physician to notify of these findings at the time of this dictation. STS. [facility] A Service of [facility] & [facility] RADIOLOGY TEXT RESULTS PATIENT: KARLIE WEINBERG SR LOCATION: SED : [birth year] UNIT #: [id number] AGE: [address]: Matias Mcdowell MD SEX: M ORDER DR: Dictated by... Aamir Marroquin M.D. THIS IS AN ELECTRONICALLY VERIFIED REPORT Aamir Marroquin M.D. at 10/17/2016 9:13 PM Lucy TD: 10/13/2016 15:08 JOB #: [id number] MEDICAL IMAGING REPORT Page 1 of 1
--- NOTE | ~2016-10-13 | EKG ---
PATIENT: KARLIE WEINBERG UNIT #: [id number] Ventricular Rate: 66 BPM Atrial Rate: 66 BPM P-R Interval: 174 ms QRS Duration: 86 ms Q-T Interval: 390 ms QTC Calculation(Bezet): 408 ms P [place]: 53 degrees Calculated R [place]: 52 degrees Calculated T [place]: 25 degrees Diagnosis Line: Normal sinus rhythm with sinus arrhythmia Diagnosis Line: Normal ECG Diagnosis Line: Diagnosis Line: Confirmed by LEONOR MYRICK MD ([id number]) on Diagnosis Line: 10/16/2016 8:30:45 AM INTERPRETING MD: RAMEZ ZHANG
--- NOTE | ~2016-10-13 | CT16 ---
[facility] A Service of [facility] & [facility] RADIOLOGY TEXT RESULTS PATIENT: KARLIE WEINBERG SR LOCATION: SED : 83 UNIT #: [id number] AGE: [address]: Matias Mcdowell MD SEX: M ORDER DR: [id number] [address] [address] [id number] E MR#: [id number] #: [id number] NAME: KARLIE WEINBERG SR : 1985 SEX: M STUDY DATE/TIME: 10/13/2016 11:57 UNIT: SED ROOM: STUDY DESCRIPTION: CT Angio Chest for PE Attending Physician: Matias Mcdowell M.D. Ordering Physician: Matias Mcdowell M.D. MEDICAL IMAGING REPORT This report is preliminary unless electronic signature is present. EXAM CT of the chest with IV contrast, PE protocol COMPARISON CT chest dated October 09, 2011. HISTORY 31-year-old male with recent seizure and status epilepsy, requiring endotracheal intubation 5 days ago. The patient received CPR and complained of chest pain since that time. FINDINGS Axial CT imaging of the chest was performed after IV administration of Isovue-370, 100 mL. Coronal MIPs as sagittal reformats were constructed. This CT exam was performed with one or more of the following radiation dose reduction techniques: automatic exposure control, adjustment of mA and/or kV according to patient size, and iterative reconstruction. FINDINGS There is no significant subcutaneous hematoma. No evidence of acute fracture. No suspicious osseous lesions. There is a small right posterolateral tracheal diverticulum. Airways widely patent. There is no pneumothorax or pleural effusion. No pulmonary contusion. Atelectasis noted in both lower lobes. Dependent consolidation in both lower lobes has resolved from 5 days ago, consistent with atelectasis. Adjacent to the pleura, there is 1 nodular density in the posterior basilar segment right lower lobe measuring approximately 4 mm. This was likely obscured by the consolidation previously. There is an even smaller nodule in the right middle lobe adjacent to the pleura which measures just under 4 mm. No evidence of pulmonary embolus. Normal caliber of the thoracic aorta and pulmonary artery. There is normal heart size without pericardial STS. [facility] A Service of [facility] & [facility] RADIOLOGY TEXT RESULTS PATIENT: KARLIE WEINBERG SR LOCATION: [facility] [place] : [birth year] UNIT #: [id number] AGE: [address]: Matias Mcdowell MD SEX: M ORDER DR: effusion. There is bilateral hilar and mediastinal adenopathy with the largest mediastinal lymph node conglomerate measuring up to 1.6 cm in a subcarinal location. Largest discrete left hilar lymph node measures up to 1 cm short axis and the largest right hilar lymph node measures up to 1.1 cm short axis. These findings were not as well evaluated on comparison CT given adjacent lung consolidation. This may be reactive. No acute findings in the imaged upper abdomen. IMPRESSION 1. No evidence of pulmonary embolus or other acute abnormality of the chest. No evidence of fracture. 2. Two right-sided pulmonary nodules measuring up to just under 4 mm. If the patient has risk factors for pulmonary malignancy, CT chest followup without IV contrast could be performed in 12 months per [employer] guidelines. Otherwise, no imaging followup of the nodules is recommended. However, the patient does have bilateral hilar and mediastinal adenopathy with the largest mediastinal node measuring up to 1.6 cm short axis. This may be reactive. Clinical correlation is recommended. Regarding the adenopathy, [address] imaging followup in 3-6 months to document stability. This will be preferably performed with IV contrast. 3. Small tracheal diverticulum. 1. 1. Dictated by... Aamir Marroquin M.D. THIS IS AN ELECTRONICALLY VERIFIED REPORT Aamir Marroquin M.D. at 10/21/2016 10:21 PM BLM/pcl TD: 10/13/2016 15:15 JOB #: [id number] MEDICAL IMAGING REPORT Page 1 of 1
--- NOTE | ~2016-10-13 | CR72 ---
[facility] A Service of [facility] RADIOLOGY TEXT RESULTS PATIENT: KARLIE WEINBERG SR LOCATION: SED : 83 UNIT #: [id number] AGE: [address]: Matias Mcdowell MD SEX: M ORDER DR: [id number] [address] [address] [id number] E MR#: [id number] Acc #: [id number] NAME: KARLIE WEINBERG SR : 1985 SEX: M STUDY DATE/TIME: 10/13/2016 11:43 UNIT: SED ROOM: STUDY DESCRIPTION: CR Chest Single View Portable Attending Physician: Matias Mcdowell M.D. Ordering Physician: Matias Mcdowell M.D. Primary Care Physician: Primary Care Physician No MEDICAL IMAGING REPORT This report is preliminary unless electronic signature is present. EXAM Portable AP view of the chest COMPARISON October 09, 2016 and October 08, 2016. INDICTIONS 31-year-old male with chest pain since CPR performed 5 days ago. Recent possible admission for status epilepticus. FINDINGS There has been interval endotracheal extubation and removal of right internal jugular catheter. There are low lung volumes with crowding of the central bronchovascular structures. CT confirms today that there are no acute pulmonary findings. Cardiomediastinal silhouette is within normal limits. No pneumothorax or pleural effusion. IMPRESSION No acute radiographic abnormality of the chest. Dictated by... Aamir Marroquin M.D. THIS IS AN ELECTRONICALLY VERIFIED REPORT Aamir Marroquin M.D. at 10/21/2016 10:25 PM CHUN/ari TD: 10/13/2016 15:20 JOB #: [id number] MEDICAL IMAGING REPORT Page 1 of 1
[~2016-10-13 10:34] MED LIST changes: +ALBUTEROL20 ml INH; +B-121000 MC1 PO; +BENZONATATE200 M1 PO; +CLEOCIN PO; +KEPPRA500 M1 PO; +SINGULAIR PO
[2016-10-13 11:10] LABS: BASOPHIL# 0.1 X10e3 (0-0.3); BASOPHIL% 0.7 % (0-2.5); EOSINOPHIL# 0.5 X10e3 (0-0.7); HEMATOCRIT 42.9 % (38.0-50.0); HEMOGLOBIN 14.6 gm/dL (13.0-16.0); LYMPHOCYTE# 1.4 X10e3 (1.0-3.5); LYMPHOCYTE% 12.1 % (17.0-45.0); MEAN CELL VOLUME 93.1 FL (83-96); MEAN CORPUSCULAR HEMOGLOBIN 31.7 PG (28-34); MEAN PLATELET VOLUME 9.6 FL (6.5-11.5); MONOCYTE# 1.2 X10e3 (0-1.0); MONOCYTE% 10.1 % (3.0-12.0); NEUTROPHIL# 8.7 X10e3 (1.5-7.1); NEUTROPHIL% 73.1 % (40-75); PLATELET COUNT 245 X10e3 (140-420); RED BLOOD COUNT 4.61 X10e (3.90-5.60); RED CELL DISTRIBUTION WIDTH 13.3 % (11.0-15.5)
[2016-10-13 11:11] LABS: DIFF IND NO
[2016-10-13 11:20] LABS: INR 1.1; PROTHROMBIN TIME (PATIENT) 12.1 SECONDS (9.5-12.4)
[2016-10-13 11:24] LABS: POC - CKMB 3.3 ng/mL (0.0-7.9); POC - TROPONIN 0.07 ng/mL (<=0.05)
[2016-10-13 11:27] LABS: PARTIAL THROMBOPLASTIN TIME 24.4 SECONDS (25.6-38.1)
[2016-10-13 11:28] LABS: URINE SOURCE CLEAN CATCH
[2016-10-13 11:31] LABS: URINE APPEARANCE CLEAR; URINE BILIRUBIN NEG (NEG); URINE BLOOD NEG (NEG); URINE COLOR YELLOW; URINE GLUCOSE NEG (NORM); URINE KETONE NEG (NEG); URINE LEUKOCYTE ESTERASE NEG (NEG); URINE NITRATE NEG (NEG); URINE PROTEIN NEG (NEG); URINE UROBILINOGEN 0.2 MG/DL (NORM)
[2016-10-13 11:32] LABS: MICRO INDICATED? NO
[2016-10-13 11:33] LABS: ALBUMIN SERUM 4.1 g/dL (3.5-5.0); ALKALINE PHOSPHATASE 38 U/L (32-92); ALT (SGPT) 214 U/L (10-40); AST (SGOT) 367 U/L (10-42); BILIRUBIN, DIRECT 0.2 mg/dL (0.0-0.2); BILIRUBIN,INDIRECT 0.5 mg/dL (0.0-0.9); BILIRUBIN,TOTAL 0.7 mg/dL (0.2-2.0); BLOOD UREA NITROGEN 15 mg/dL (9-23); BUN/CREATININE RATIO 18.75; CALCIUM SERUM 9.4 mg/dL (8.4-10.2); CARBON DIOXIDE 26 mmol/L (22-31); CHLORIDE 106 mmol/L (100-111); CREATININE SERUM 0.8 mg/dL (0.6-1.4); GLOM FILT RATE Estimated 118.2 mL/min (>60); GLUCOSE FASTING 102 mg/dL (70-110); POTASSIUM 3.6 mmol/L (3.5-5.1); PROTEIN TOTAL SERUM 7.2 g/dL (6.0-8.3); SODIUM 141 mmol/L (135-145)
[2016-10-13 11:34] LABS: ALCOHOL BLOOD <5 mg/dL (0)
[2016-10-13 11:41] LABS: AMPHETAMINE NEG (NEG); BARBITURATES NEG (NEG); BENZODIAZEPINES NEG (NEG); COCAINE NEG (NEG); MARIJUANA POS (NEG); OPIATES NEG (NEG); TRICYCLIC ANTIDEPRESSANTS NEG (NEG); U METHADONE NEG (NEG)
[2016-10-13 12:56] LABS: POC - CKMB 3.8 ng/mL (0.0-7.9)
[2016-10-13 12:57] LABS: POC - TROPONIN <0.05 ng/mL (<=0.05)
== END 2016-10-13 14:36 | disposition hospice, home (50) ==
LOC: SED 10:34
PROVIDERS: Emergency Medicine
DX: I62.02 Nontraumatic subacute subdural hemorrhage (principal); R74.0 Nonspecific elevation of levels of transaminase and lactic acid dehydrogenase [LDH]; Z79.2 Long term (current) use of antibiotics; Z79.899 Other long term (current) drug therapy; Z88.0 Allergy status to penicillin
CPT/HCPCS: 36415; 70450; 71010; 71275; 80048; 80076; 80307; 81003; 82553; 84484; 85025; 85610; 85730; 93005; 96360; 99285; G0480; J1170; Q9967